=== PATIENT | male | born 1975 | race Two or more races ===

== ENCOUNTER 2016-10-14 16:57 | Emergency (ER) | payer OTHER ==
[~2016-10-14] VITALS: Ht 175.3 cm; Wt 110.5 kg
[2016-10-14 17:06] VITALS: BP 235/134; PULSE 84; RESP 16; O2SAT 98
--- NOTE | 2016-10-14 17:35 | ED.REPORT ---
HPI-Facial Injury Date of Service Oct 14, 2016 ED Provider: Dr. Wynne Pt is a generally healthy 40 y/o male presenting to the ED due to probable dental infection and hypertension. The patient had a recent dental infection and was prescribed antibiotics and it completely resolved. He believes the infection has returned within the past 1 day. Pt denies fever, chills, dysphagia , CP, SOB, exertional symptoms, throat or neck swelling, trouble breathing. He states he felt the best he has ever felt in his life after taking antibiotics for the first infection. He initially presented to Urgent Care today and due to his severe hypertension of (235/134) he was recommended to come to the ED. He has never been told he was hypertensive previously. Nursing Notes Stated Complaint: SWOLLEN JAW/HIGH BLOOD PRESSURE/SENT FROM [facility] Chief Complaint: Dental Nursing Notes Reviewed: Yes Allergies: Coded Allergies: Penicillins (Verified Allergy, Severe, IT WOULD KILL ME, 10/14/16) Scheduled Clindamycin (Clindamycin) 300 Mg Capsule 300 MG PO QID Dexamethasone (Dexamethasone) 4 Mg Tablet 8 MG PO DAILY Lactobacillus Acidophilus (Probiotic) 1 Each Capsule 1 EACH PO DAILY Lisinopril (Lisinopril) 20 Mg Tablet 20 MG PO DAILY Scheduled PRN Hydrocodone-Acetaminophen 5-325 mg (Hydrocodone-Acetaminophen 5-325 mg) 1 Each Tablet 1-2 TABLET PO Q4H PRN PRN For Pain General Time Seen by Provider: 17:35 Chief Complaint Other (toothache) Hx Obtained From: Patient Arrived By: Walk-in Onset Occurred: Yesterday Symptom Duration: Since onset Progression Since Onset: Constant Quality: Painful Severity: Current: Mild Severity: Maximum: Moderate Recent Healthcare: Recent doctor visit, Previous diagnosis Similar Sx Previous: Yes Past Medical History Past Medical History Dental infection Asthma as a child Past Surgical History Denies Family History Diabetes Smoking History Current Every Day Smoker Ambulatory Status Independent Review of Systems Constitutional: Denies: Chills, Fever Ears / Nose / Throat: Reports: Toothache, Denies: Sore throat, Throat swelling Neurologic: Denies: Change LOC, Confusion, Headache Complete sys rev & neg: except as marked. Respiratory: Denies: Dyspnea on exertion, Non-productive cough, Shortness of breath Cardiovascular: Denies: Chest pain, Dyspnea on exertion GI: Denies: Dysphagia, Nausea, Vomiting Physical Exam Initial Vital Signs Vital Signs (First) Date Time Temp Pulse Resp B/P Pulse Ox O2 Delivery O2 Flow Rate FiO2 10/14/16 17:06 36.7 84 16 235/134 98 Room Air Initial VS: Reviewed, Vital signs abnormal Respiratory: Breath sounds normal, Clear to auscultation, No respiratory distress Cardiovascular: Regular rate & rhythm, Heart sounds normal, Intact distal pulses Abdomen / GI: Soft, No distention Extremities: Vascular intact, Neuro intact, No swelling, No tenderness Skin: Warm, Dry, No cyanosis Psychiatric: Mood/affect normal, Behavior normal, Normal thought content Head / Eyes: Atraumatic, Normocephalic, PERRL ENT: Atraumatic, Airway patent, Mucous membranes moist, Pharynx NL, No pooling of secretions, No trismus Several dental caries. Swelling about the rearmost molar on the left side. No fluctuance or sign of dental abscess which would require I&D. Neck: Atraumatic, Supple, No meningismus, Full range of motion, No adenopathy Neurologic: Oriented X3, Speech NL, No motor deficits, No sensory deficits, CN II - XII intact, Cerebellar NL, Memory NL General/Constitutional: Awake, Alert, No acute distress, Well appearing, Cooperative, Not toxic appearing Severe hypertension Interpretation & Diagnostics Lab Results Interpretation Result Diagram: 10/14/16 1757 10/14/16 1757 Test 10/14/16 17:57 White Blood Count 12.5th/mm3 (3.8-10.1) Red Blood Count 5.55mil/mm3 (4.40-5.80) Hemoglobin 16.6g/dL (13.8-17.2) Hematocrit 47.0% (41.0-50.0) Mean Corpuscular Volume 84.7fL (81-100) Mean Corpuscular Hemoglobin 29.9pg (27.0-35.0) Mean Corpuscular Hemoglobin Concent 35.3% (32.0-37.0) Red Cell Distribution Width 12.7% (12.3-15.4) Platelet Count 210bil/L (150-400) Neutrophils (%) (Auto) 73.2% (40-74) Lymphocytes (%) (Auto) 18.3% (14-46) Monocytes (%) (Auto) 7.1% (4-12) Eosinophils (%) (Auto) 1.0% (0-5) Basophils (%) (Auto) 0.2% (0-3) Sodium Level 140mEq/L (134-144) Potassium Level 3.7mEq/L (3.5-5.2) Chloride Level 100mEq/L (97-108) Carbon Dioxide Level 26mmol/L (18-29) Blood Urea Nitrogen 13mg/dL (6-20) Creatinine 1.07mg/dL (0.76-1.27) Estimat Glomerular Filtration Rate 82mL/min (>59) Glucose Level 121mg/dL (60-99) Calcium Level 9.9mg/dL (8.5-10.1) Total Bilirubin 0.5mg/dL (0.0-1.2) Aspartate Amino Transf (AST/SGOT) 30U/L (0-50) Alanine Aminotransferase (ALT/SGPT) 48U/L (0-44) Alkaline Phosphatase 68U/L (25-150) Total Protein 8.0g/dL (6.4-8.4) Albumin 5.0g/dL (3.4-5.0) Hold Sheldon Top Tube Received (Received) ECG Interpretation ECG Interpretation: Sinus rhythm rate 61 Incomplete RBBB Nonspecific T wave inversions laterally Time: 17:54 Interpreted by: ED physician Re-Eval/Medical Decision Med Decision/Clinical Course This is a 40-year-old male referred from urgent care with a combination of a dental infection and severe hypertension. The patient's hypertension is asymptomatic, but extremely elevated. Occasions and is not aware of having a prior history of heart disease. He has had no chest pain, shortness of breath, back or abdominal complaints. No headache or focal deficits. No end organ symptoms are present. He went to urgent care because he developed swelling and pain along the left jaw line and reports having another dental abscess. He has dental caries, has had a previous abscess treated successfully clots in her months ago and this is recurrent. On exam he does have swelling along the mandible on the left side, appears to be rearmost molar on the left side which is severely carried. However there is nothing amenable to incision and drainage. There is no trismus or airway compromise. He has no cervical adenopathy. He has no findings of blood with angina. Aside from being hypertensive. He otherwise has a normal exam. Dental infection is having an IV placed and received him a loading dose of clindamycin and dexamethasone. Screening labs are being obtained as well as an EKG given the severity for hypertension. Plan is to initiation of lisinopril, PCP referral, and in for the dental infection discharge on clindamycin, 2 days of dexamethasone, and probiotic with dental follow-up. He did require antihypertensives to bring his blood pressure down. Laboratory work is reassuring. I did perform a drainage of what appears to be a periapical abscess. Evidently the swelling was not as impressive on Dr. Wynne 's evaluation. On my evaluation there was soft tissue swelling over the left lateral mandible along the nuchal mucosa. Lidocaine was injected locally 1 mL. Small stab incision performed. Purulent material was expressed. Mr. ruiz felt much better. Laboratory work looked good. Blood pressure came down. He is to follow-up in the outpatient basis. Source of Hx: Old records Differential Diagnosis: Negative: Abrasion, Animal bite, Blow out fracture, Epistaxis, anterior, Epistaxis, posterior, Gun shot wound, Hematoma, [place] I fractures, [place] III fractures, Stab wound Counseled Regarding: Diagnosis, Lab results, Need for follow-up, When/why to return to ED Discharge & Departure Impression: Primary Impression: Dental abscess Additional Impressions: HTN (hypertension) Hypertension type: essential hypertension Qualified Code: I10 - Essential ( primary) hypertension Infected dental carries Disposition: Home Discharge Condition All VS Reviewed: Yes Condition: Stable Additional Instructions: 1. You have a dental infection received her first dose of clindamycin tonight. 2. The antibiotic clindamycin 300 mg 4 times a day for 10 days. 3. I recommend taking the probiotic daily while you are antibiotic, and additional 2 weeks after finishing the antibiotic, to place healthy bacteria in the intestine that are accidentally killed by the antibiotic. 4. Take dexamethasone 4mg two tabs tomorrow and two tabs Friday to help with symptoms 5. Your blood pressure was very elevated today, but your EKG and blood tests were normal. I recommend starting the blood pressure medication lisinopril 20mg once a day, and you should follow up with a primary care provider for a recheck in a few weeks. Call for an appointment. (Note blood pressure itself usually does not cause any symptoms-but over time leads to increased risks of heart disease, heart failure, stroke, and kidney failure blood pressure is high enough that this is significant concern if left untreated) 6. You do still need to follow up with a dentist for definitive care. Call for an appointment 7. Return if new or worsening symptoms. 8. If needed for pain take hydrocodone/APAP 5/325 1-2 tabs up to every 6 hours for pain. NOTE: this medication contains a narcotic and causes drowsiness. Scribe Attestation Portions of this note were transcribed by Nigel Aleman. I, Dr. Wynne personally performed the history, physical exam and medical decision-making; I reviewed and confirmed the accuracy of the information in the transcribed note. Signed by Kel Colon, 10/14/16 - [id number] Hayden Wynne MD Oct 14, 2016 17:35 NIGEL ALEMAN Oct 14, 2016 17:41 Matthias Padron DO Oct 14, 2016 23:07
[2016-10-14] MEDS ORDERED: Clindamycin Inj 900 MG in IV Premix 1 EACH IV ONE (17:40)
[2016-10-14] MEDS ORDERED: Dexamethasone Inj 10 MG in 0.9% Sodium Chloride-Pha MIX 50 ML IV ONE (17:40)
[2016-10-14] MEDS ORDERED: HYDR-4003 PO (17:45)
[2016-10-14] MEDS ORDERED: DXM4T PO (17:45)
[2016-10-14] MEDS ORDERED: LACT1CAP65 PO (17:45)
[2016-10-14] MEDS ORDERED: CLIN-78 PO (17:45)
[2016-10-14] MEDS ORDERED: LISI-567 PO (17:46)
[2016-10-14 18:05] LABS: BASOPHILS % (AUTO) 0.2 % (0-3); MONOCYTES % (AUTO) 7.1 % (4-12); Mean Corpuscular Hemoglobin 29.9 pg (27.0-35.0); Mean Corpuscular Volume 84.7 fL (81-100); NEUTROPHILS % (AUTO) 73.2 % (40-74); Platelet Count 210 bil/L (150-400)
[2016-10-14 19:00] VITALS: BP 210/128; PULSE 78; RESP 16; O2SAT 98
[2016-10-14] MEDS ORDERED: cloNIDine 0.1 mg Tablet PO ONE (19:00)
[2016-10-14] MEDS ORDERED: Lidocaine 1% 50 mL Inj NERVEBLOCK ONE (19:00)
[2016-10-14 19:52] VITALS: BP 221/121
[2016-10-14] MEDS ORDERED: Labetalol 5 mg/mL 4 mL Inj IVPUSH ONE ×2 (20:00→20:10)
[2016-10-14 20:21] VITALS: BP 180/99
[2016-10-14 20:40] VITALS: BP 168/98; PULSE 84; RESP 16
== END 2016-10-14 20:41 | disposition home or self-care (01) ==
LOC: SED 16:57
DX: K04.7 Periapical abscess without sinus (principal); I10 Essential (primary) hypertension; K02.9 Dental caries, unspecified; F17.200 Nicotine dependence, unspecified, uncomplicated; Z88.0 Allergy status to penicillin
CPT/HCPCS: 36415; 80053; 85025; 93005; 96365; 96375; 99284; J1100; J3490